=== PATIENT | male | born 1955 | race Caucasian/White ===

== ENCOUNTER 2018-10-30 10:54 | Emergency (ER) | payer BC ==
[~2018-10-30] VITALS: Ht 165.1 cm; Wt 109.8 kg
[2018-10-30] MEDS ORDERED: METF500T13 PO (11:14)
[2018-10-30] MEDS ORDERED: LISI10TA4 PO (11:14)
[2018-10-30] MEDS ORDERED: OMEP40CA2 PO (11:14)
[2018-10-30] MEDS ORDERED: ASPIRIN 81 MG CHEW TABLET PO ONE (11:15)
[2018-10-30] MEDS ORDERED: NS 1,000 ML IV ONE (11:30)
[2018-10-30 11:40] LABS: BASO # 0.1 10^3/uL (0.0-0.2); BASO % 0.6 % (0.0-1.0); EOS % 0.4 % (0.0-3.0); HEMATOCRIT 46.4 % (42.0-52.0); HEMOGLOBIN 15.7 g/dl (13.5-17.5); LYMPH # 1.5 10^3/uL (1.5-4.5); LYMPH % 16.4 % (24.0-44.0); MEAN CORPUSCULAR HGB CONC 33.8 g/dl (32.0-36.5); MEAN CORPUSCULAR VOLUME 85.8 fl (80.0-96.0); MONO % 10.7 % (0.0-5.0); NEUTROPHILS # 6.7 10^3/uL (1.8-7.7); NEUTROPHILS % 71.6 % (36.0-66.0); PLATELET COUNT, AUTOMATED 172 10^3/uL (150-450); RED BLOOD COUNT 5.41 10^6/uL (4.30-6.10); WHITE BLOOD COUNT 9.3 10^3/uL (4.0-10.0)
[2018-10-30 11:55] LABS: INR 0.92; PROTHROMBIN TIME 12.5 SECONDS (12.1-14.4)
--- NOTE | 2018-10-30 12:04 | REP ---
Clinical: Acute chest pain . Comparison: None . Technique: PA and lateral. Findings: The mediastinum and cardiac silhouette are normal. The lung giordano are clear and without acute consolidation, effusion, or pneumothorax. The skeletal structures are intact and normal. Impression: 1. No acute cardiopulmonary process. Electronically Signed by James Luque MD 10/30/2018 11:55 A
[2018-10-30 12:22] LABS: ALBUMIN 3.3 GM/DL (3.2-5.2); ALT/SGPT 61 U/L (12-78); BILIRUBIN,DIRECT 0.1 MG/DL (0.0-0.2); BILIRUBIN,TOTAL 0.5 MG/DL (0.2-1.0); BLOOD UREA NITROGEN 24 MG/DL (7-18); CARBON DIOXIDE LEVEL 28 MEQ/L (21-32); CHLORIDE LEVEL 98 MEQ/L (98-107); CPK CREATINE PHOSPHOKINASE 125 U/L (39-308); CREATININE FOR GFR 1.48 MG/DL (0.70-1.30); GLOMERULAR FILTRATION RATE 51.4 (>49); GLUCOSE, FASTING 314 MG/DL (70-100); POTASSIUM SERUM 4.3 MEQ/L (3.5-5.1); SODIUM LEVEL 134 MEQ/L (136-145); THYROID STIMULATING HORMONE 0.593 uIU/ML (0.358-3.740); TOTAL PROTEIN 7.6 GM/DL (6.4-8.2); TROPONIN I < 0.02 NG/ML (< 0.10)
[2018-10-30] MEDS ORDERED: ISOVUE-370 76% 100ML VIAL (Q9967) As Ordered ONE (12:24)
[2018-10-30] MEDS ORDERED: AZIT-12 PO (14:43)
[2018-10-30] MEDS ORDERED: AZITHROMYCIN 250 MG TAB PO ONE (14:45)
[2018-10-30 15:30] LABS: CPK CREATINE PHOSPHOKINASE 108 U/L (39-308); MB/CK RELATIVE INDEX 1.48 (< OR =4); TROPONIN I < 0.02 NG/ML (< 0.10)
[2018-10-30 15:37] VITALS: BP 146/88
--- NOTE | 2018-10-31 07:21 | ECGEPIP ---
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
--- NOTE | 2018-11-01 12:25 | REP ---
Clinical: Acute chest pain. Technique: Axial contrast enhanced images from the thoracic inlet to the upper abdomen using 100 ml Isovue 370 intravenous contrast material with coronal and sagittal re-formations. Findings: Satisfactory enhancement of the pulmonary vasculature is achieved and no filling defects are identified to suggest pulmonary embolus. Lung giordano demonstrate subtle lingular and right lower lobe infiltrates/atelectasis. No effusion. No pneumothorax. Tracheobronchial tree is patent. Mediastinum demonstrates normal thoracic aorta and heart/pericardium. No significant adenopathy. Impression: No evidence for pulmonary embolus. Subtle lingular and right lower lobe infiltrates/atelectasis. Electronically Signed by James Luque MD 10/30/2018 12:56 P
== END 2018-10-30 15:49 | disposition home or self-care (01) ==
LOC: M ED 10:54
DX: R07.9 Chest pain, unspecified (principal); R91.8 Other nonspecific abnormal finding of lung field; E11.9 Type 2 diabetes mellitus without complications; I12.9 Hypertensive chronic kidney disease with stage 1 through stage 4 chronic kidney disease, or unspecified chronic kidney disease; N18.9 Chronic kidney disease, unspecified; K21.9 Gastro-esophageal reflux disease without esophagitis; L40.50 Arthropathic psoriasis, unspecified; Z79.899 Other long term (current) drug therapy; Z79.84 Long term (current) use of oral hypoglycemic drugs; Z88.1 Allergy status to other antibiotic agents; Z88.2 Allergy status to sulfonamides
CPT/HCPCS: 36415; 71046; 71275; 80048; 80076; 82550; 82553; 84439; 84443; 84484; 85025; 85610; 93005; 96360; 96361; 99284; Q9967

== ENCOUNTER → 2024-04-12 | Outpatient (CLI) | payer BC ==
[~2024-04-12] MED LIST: AZIT-12 PO; LISI10TA22 PO; METF500T13 PO; OMEP40CA4 PO
== END ==
LOC: M PLAIMG 14:00
PROVIDERS: ATTEND Nurse Practitioner
DX: M54.9 Dorsalgia, unspecified (principal)